=== PATIENT | male | born 1970 | race Caucasian/White ===

== ENCOUNTER 2024-10-03 12:26 | Outpatient (OUT) | payer MEDICAID, SELFPAY ==
--- NOTE | 2024-10-03 12:41 | CT_ITS ---
[address] [address] Patient Name: BRADLEY NAGEL MRN: [id number] date: 1970 Sex: M Assigned Patient Location: CT Current Patient Location: CT Accession/Order Number: [id number] Exam Date: 10/03/2024 13:08 Report Date: 10/03/2024 13:17 At the request of: LUIS DALEY Procedure: CT lung screening low-dose CT CHEST WITHOUT CONTRAST, LOW DOSE SCREENING: CLINICAL DATA: A 53-year old current smoker. COMPARISON: None TECHNIQUE: Noncontrast axial CT scan images of the chest were obtained under the low dose screening CT protocol. Coronal and sagittal reconstructed images were also submitted. FINDINGS: Mediastinum : Suboptimal evaluation due to low-dose technique. Thoracic aorta appears normal in caliber. Pulmonary trunk appears nondilated. No pericardial effusion. No lymphadenopathy. The esophagus is grossly unremarkable. Lungs: No focal consolidation, pneumothorax or pleural effusion. Trachea and distal airways appear patent. Diffuse bronchial wall thickening. Emphysema. Mosaic attenuation of the lungs suggestive of small airways disease. No suspicious noncalcified pulmonary nodule or mass. Upper abdomen: No acute findings.. Cholelithiasis. Bony thorax and chest wall: Soft tissues surrounding the chest wall demonstrate no acute findings. Osseous structures demonstrate degenerative change. CT/CT lung screening low-dose IMPRESSION: NO SUSPICIOUS PULMONARY NODULE. LUNG - RADS Version 1.0 Assessment: Category 1, Negative (No nodules and definitely benign nodules). Management: Continue annual lung screening with LDCT in 12 months. Impression dictated by: Nicolas Peterson Jr., D.O.10/03/2024 1:17 PM Dictation Location: [place] [address] Electronically authenticated by: [id number] Y Date: 10/03/2024 13:17
== END 2024-10-03 12:27 | disposition home or self-care (01) ==
LOC: CT 12:26
PROVIDERS: Visit Provider Nurse Practitioner Family
DX: F17.210 Nicotine dependence, cigarettes, uncomplicated (principal)
CPT/HCPCS: 71271